=== PATIENT | female | born 1990 | race African-American/Black ===

== ENCOUNTER 2021-02-28 07:49 | Outpatient (CLI) | payer BC | END 2021-02-28 07:50 | disposition home or self-care (01) | LOC: BICULT 07:49 | PROVIDERS: ATTEND Nurse Practitioner Family | DX: N92.6 Irregular menstruation, unspecified (principal); N92.0 Excessive and frequent menstruation with regular cycle; Z76.89 Persons encountering health services in other specified circumstances; Z68.41 Body mass index [BMI] 40.0-44.9, adult | CPT/HCPCS: 76856; 93976 ==